=== PATIENT | male | born 1945 | race Caucasian/White ===

== ENCOUNTER 2017-05-19 14:23 | Emergency (ER) | payer MEDICARE ==
[~2017-05-19] VITALS: Ht 177.8 cm; Wt 76.3 kg
[~2017-05-19 14:23] MED LIST: ACID1TAB7 PO; AMLO2.5T2 PO; AMLO5TAB2 PO; CARB1TAB43 PO; FINA5TAB4 PO; HEPA5000 SQ; LEVO500T33 PO; METH10TA6 PO; METO25TA35 PO; MULT-187 PO; POLY17PO5 PO
[2017-05-19] MEDS ORDERED: SODIUM CHLORIDE 0.9% 1,000 ML IV ONE (15:41)
[2017-05-19 16:16] LABS: BLOOD UREA NITROGEN 30 mg/dL (7-18)
[2017-05-19 16:21] LABS: IS PT STATUS REG ER OR PRE ER? YES
[2017-05-19] MEDS ORDERED: CIPROFLOXACIN 500 MG TABLET PO ONE (18:30)
[2017-05-19 18:35] VITALS: BP 168/90
== END 2017-05-19 19:13 | disposition home or self-care (01) ==
LOC: ED 15:55
DX: N40.1 Benign prostatic hyperplasia with lower urinary tract symptoms (principal); R33.8 Other retention of urine; N30.00 Acute cystitis without hematuria; E78.5 Hyperlipidemia, unspecified; G20 Parkinson's disease; I12.9 Hypertensive chronic kidney disease with stage 1 through stage 4 chronic kidney disease, or unspecified chronic kidney disease; N18.3 Chronic kidney disease, stage 3 (moderate); I48.91 Unspecified atrial fibrillation; I25.10 Atherosclerotic heart disease of native coronary artery without angina pectoris; N12 Tubulo-interstitial nephritis, not specified as acute or chronic; Z86.73 Personal history of transient ischemic attack (TIA), and cerebral infarction without residual deficits
CPT/HCPCS: 36415; 51702; 71010; 80048; 81001; 82040; 84484; 85025; 87086; 93005; 96360; 96361; 99285; J7030

== ENCOUNTER 2017-05-20 11:12 | Emergency (ER) | payer MEDICARE ==
[~2017-05-20] VITALS: Ht 170.2 cm; Wt 71.2 kg
[2017-05-20 11:14] VITALS: BP 102/69
== END 2017-05-20 12:42 | disposition home or self-care (01) ==
LOC: ED 12:09
DX: N40.1 Benign prostatic hyperplasia with lower urinary tract symptoms (principal); R33.8 Other retention of urine; I25.10 Atherosclerotic heart disease of native coronary artery without angina pectoris; I48.91 Unspecified atrial fibrillation; E78.5 Hyperlipidemia, unspecified; I12.9 Hypertensive chronic kidney disease with stage 1 through stage 4 chronic kidney disease, or unspecified chronic kidney disease; N18.3 Chronic kidney disease, stage 3 (moderate); Z86.73 Personal history of transient ischemic attack (TIA), and cerebral infarction without residual deficits
CPT/HCPCS: 99281

== ENCOUNTER 2017-07-16 07:13 | Emergency (ER) | payer MEDICARE ==
[~2017-07-16] VITALS: Ht 177.8 cm; Wt 74.5 kg
[~2017-07-16 07:13] MED LIST changes: -LEVO500T33 PO; +LEVO500T47 PO
[2017-07-16] MEDS ORDERED: CIPR500T3 PO (07:35)
[2017-07-16] MEDS ORDERED: L.E.T SOLUTION TP ONE ×2 (07:51→08:00)
[2017-07-16 08:00] LABS: HEMATOCRIT 44.7 % (39.2-51.8); HEMOGLOBIN 14.8 g/dL (13.7-18.0); WHITE BLOOD COUNT 5.4 x10^3/uL (3.4-10)
[2017-07-16 08:11] LABS: ASPARTATE AMINO TRANSFERASE 9 U/L (15-37); BLOOD UREA NITROGEN 23 mg/dL (7-18)
[2017-07-16] MEDS ORDERED: BACITRACIN ZINC OINT 500U/GM, 0.9 GM ONE (09:56)
[2017-07-16 10:04] VITALS: BP 148/84
== END 2017-07-16 10:06 | disposition home or self-care (01) ==
LOC: ED 08:26
DX: S01.01XA Laceration without foreign body of scalp, initial encounter (principal); S51.012A Laceration without foreign body of left elbow, initial encounter; I10 Essential (primary) hypertension; Z86.73 Personal history of transient ischemic attack (TIA), and cerebral infarction without residual deficits; W06.XXXA Fall from bed, initial encounter; Y93.89 Activity, other specified; Y99.8 Other external cause status; Y92.89 Other specified places as the place of occurrence of the external cause
CPT/HCPCS: 12001; 12031; 36415; 70450; 72125; 80053; 85025